=== PATIENT | male | born 1990 | race Caucasian/White ===

== ENCOUNTER 2016-09-29 16:32 | Emergency (ER) | payer OTHER ==
[2016-09-29 16:57] VITALS: BP 147/92
[2016-09-29] MEDS ORDERED: Benoxinate/Fluorescein 0.4-0.25% Ophth Soln 5 ML Bottle EYELF SCH (17:45)
--- NOTE | 2016-09-29 18:04 | EDM.PDOC ---
ED HPI GENERAL MEDICAL PROBLEM - General Chief Complaint: Chemical Exposure Stated Complaint: LEFT EYE CHEMICAL EXPOSURE Time Seen by Provider: 09/29/16 16:43 Source of Information: Reports: Patient History Limitations: Reports: No Limitations - History of Present Illness INITIAL COMMENTS - FREE TEXT/NARRATIVE: 26-year-old male presents for evaluation treatment of chemical exposure to the left eye. Injury occurred about 2 hours prior to arrival in the ER. Patient was at work. He states that he was working with nozzle when he tightened it and a type of emulsifier sprayed out sprain him in his left eye and a small drop in his mouth. He states that he flushed his eye extensively for at least an hour. He is currently complaining of tearing, pain and blurry vision to the left eye. He has also noticed irritation. Patient reports that he has 20/20 vision and does not wear glasses or contacts. Onset: Today Left Eye Pain Score (Numeric/FACES): 6 - Related Data Allergies Allergy/AdvReac Type Severity Reaction Status Date / Time No Known Allergies Allergy Verified 09/29/16 16:56 Home Meds: Home Meds Erythromycin Base [Erythromycin 0.5% Ophth Oint] 3.5 gm EYEBOTH ONETIME #1 tube 09/29/16 [Rx] Ketorolac [Acular 0.5% Ophth Soln] 1 drop EYELF QID PRN #1 bottle 09/29/16 [Rx] Past Medical History - Past Health History Medical/Surgical History: Denies Medical/Surgical History Social & Family History - Tobacco Use Smoking Status *Q: Light Tobacco Smoker Years of Tobacco use: 1 Packs/Tins Daily: 0.1 - Caffeine Use Caffeine Use: Reports: Coffee, Soda - Recreational Drug Use Recreational Drug Use: No ED ROS GENERAL - Review of Systems Review Of Systems: See Below HEENT: Reports: Eye Discharge (tearing left eye), Eye Pain (left ), Vision Change (reports blurry vision in the left eye from tearing ) ED EXAM, BURN/SMOKE INHALATION - Physical Exam Exam: See Below Exam Limited By: No Limitations General Appearance: Alert, WD/WN, No Apparent Distress Eye Exam: Right Eye: Normal Inspection, Left Eye: Conjunctival Injection, Other (pain relief achieved with proparacaine drops to the left eye; left eye examined with fluorcein and the slit lamp; no corneal lacerations, pooling of the fluorcein suggesting a burn to the left lower conjunctiva at the 5 to 8 o clock position), Bilateral Eye: EOMI, PERRL Ears (Abbreviated): Normal External Exam Respiratory: No Respiratory Distress Neurological: Alert, Oriented, Normal Cognition Skin Exam: Warm, Dry, Normal Color Course - Vital Signs Last Recorded V/S: Last Vital Signs Temp 36.1 C 09/29/16 16:53 Pulse 79 09/29/16 16:53 Resp 18 09/29/16 16:53 BP 147/92 H 09/29/16 16:53 Pulse Ox 97 09/29/16 16:53 - Orders/Labs/Meds Meds: Medications Discontinued Medications Generic Name Dose Route Start Last Admin Trade Name Freq PRN Reason Stop Dose Admin Fluorescein Sodium/Benoxinate HCl 1 ml 09/29/16 17:45 09/29/16 18:27 Fluress Ophth Soln EYELF 1 ml ASDIRECTED ARIANE Administration Departure - Departure Time of Disposition: 18:30 Disposition: Home, Self-Care 01 Condition: Fair Clinical Impression: Chemical conjunctivitis of left eye - Discharge Information Prescriptions: Erythromycin Base [Erythromycin 0.5% Ophth Oint] 3.5 gm EYEBOTH ONETIME #1 tube Ketorolac [Acular 0.5% Ophth Soln] 1 drop EYELF QID PRN #1 bottle PRN Reason: Pain Instructions: Chemical Conjunctivitis, [id number] Referrals: PCP,Not In Area [Primary Care Provider] - Forms: ED Department Discharge, Return to Work/School Form Additional Instructions: Erythromycin ointment to the left eye 1cm ribbon qid x 7 days. acular eye drops to the left eye 4x a day x 7 days prn pain OTC tylenol or motrin as needed for pain relief. Follow-up with an eye doctor Tuesday or Tuesday at the latest. Call [phone] for [facility]. Call [phone] for [facility]. Call for [facility]. Please return to the ER should your symptoms change or worsen.
== END 2016-09-29 19:00 | disposition home or self-care (01) ==
LOC: JD.ED 16:32
DX: H10.89 Other conjunctivitis (principal); F17.210 Nicotine dependence, cigarettes, uncomplicated; Z79.899 Other long term (current) drug therapy; Z79.82 Long term (current) use of aspirin
CPT/HCPCS: 99283